=== PATIENT | female | born 1950 | race Two or more races ===

== ENCOUNTER 2017-09-04 21:40 | Inpatient (IN) | payer OTHER ==
[~2017-09-04] VITALS: Ht 160 cm; Wt 76.6 kg
[~2017-09-04 21:40] MED LIST: ALB5IS NEB; Ipratropium Bromide NEB; LEV500PM PO; MET25T PO; NITR0.4S29 SL
[2017-09-04 22:43] LABS: Eosinophils # (auto) 0.1 uL; Eosinophils % (auto) 1.2 % (0.0-7.0); Lymphocytes % (auto) 7.1 % (10.0-50.0); Mean Corpuscular Hemoglobin 32.6 pg (28.0-32.0); Monocytes # (auto) 0.3 uL
[2017-09-04 22:44] LABS: Basophils # (auto) 0 uL; Basophils % (auto) 0.1 % (0.0-2.0); Hematocrit 25.3 % (36.0-46.0); Hemoglobin 8.2 g/dL (12.2-16.2); Lymphocytes # (auto) 0.5 uL; Mean Corpuscular Hgb Conc. 32.4 g/dL (32.0-36.0); Mean Corpuscular Volume 100.5 fL (80.0-100.0); Monocytes % (auto) 4.8 % (0.0-12.0); Neutrophils # (auto) 5.6 uL; Neutrophils % (auto) 86.8 % (37.0-80.0); Nucleated Red Blood Cells % 0.3 %; Platelet Count (auto) 144 10^3/uL (140-450); Red Blood Cells 2.52 10^6/uL (4.0-5.20); White Blood Cell 6.4 10^3/uL (4.4-10.8)
[2017-09-04 22:51] LABS: INR 0.97 (0.9-1.15); Partial Thromboplastin Time 19.7 sec (22.64-33.71); Prothrombin Time 10.6 sec (9.37-12.3)
[2017-09-04 22:53] LABS: Chloride 102 mmol/L (98-107); Potassium 3.9 mmol/L (3.5-5.1); Sodium 139 mmol/L (136-145)
[2017-09-04 22:55] LABS: Red Cell Distribution Width 20.3 % (11.8-14.3)
[2017-09-04 22:56] LABS: Alanine Aminotransferase 180 U/L (13-56); Albumin 3.4 g/dL (3.4-5.0); Anion Gap 11 (5-15); Aspartate Aminotransferase 85 U/L (15-37); BUN/Creatinine Ratio 10.5; Blood Alcohol < 3.0 mg/dL (0-5); Blood Urea Nitrogen 51 mg/dL (7-18); Calcium 7.9 mg/dL (8.5-10.1); Carbon Dioxide 26 mmol/L (21-32); GFR African American 12 mL/min; GFR Non-African American 10 mL/min; Glucose 116 mg/dL (74-106); Magnesium 2.2 mg/dL (1.6-2.6)
[2017-09-04 23:09] LABS: Alkaline Phosphatase 164 U/L (45-117); Bilirubin, Total 0.8 mg/dL (0.2-1.0); Total Protein 5.7 g/dL (6.4-8.2)
[2017-09-04] MEDS ORDERED: FAMO-12 PO (23:39)
[2017-09-04] MEDS ORDERED: ZOLP5TAB5 PO (23:39)
[2017-09-04] MEDS ORDERED: ALPR0.254 PO (23:39)
[2017-09-04] MEDS ORDERED: CALC667C PO (23:39)
[2017-09-04] MEDS ORDERED: CALC0.25 PO (23:39)
[2017-09-04] MEDS ORDERED: METO-159 PO (23:39)
[2017-09-04] MEDS ORDERED: METO5TAB2 PO (23:39)
[2017-09-05] MEDS ORDERED: LEVOFLOXACIN 500MG 100 ML IV ONE (05:00)
[2017-09-05] MEDS ORDERED: METOPROLOL SUCCINATE XL 50 MG TAB PO ONE (06:45)
[2017-09-05 06:57] LABS: Urine Bacteria NONE SEEN /hpf (None Seen); Urine Blood 2+ /uL (Negative); Urine Specific Gravity 1.009 (1.001-1.035); Urine WBC 11 /hpf (0 - 5)
[2017-09-05 07:22] LABS: Alcohol, Urine < 3.0 mg/dL (0-5); Amphetamine Screen, Urine NEGATIVE (NEGATIVE); Barbiturate Scree,Urine NEGATIVE (NEGATIVE); Benzodiazephine Screen, Urine NEGATIVE (NEGATIVE); Cannabinoid Screen, Urine NEGATIVE (NEGATIVE); Cocaine Screen, Urine NEGATIVE (NEGATIVE); Opiate Scree,Urine NEGATIVE (NEGATIVE); Phencyclidine Screen, Urine NEGATIVE (NEGATIVE)
[2017-09-05] MEDS ORDERED: NITROGLYCERIN 0.4 MG SL TAB SL PRN ×2 (09:00)
[2017-09-05] MEDS ORDERED: ALPRAZolam 0.25 MG TAB PO PRN (09:00)
[2017-09-05] MEDS ORDERED: MORPHINE SULFATE 4 MG/ML SYR/VIAL IV PRN (09:00)
[2017-09-05] MEDS ORDERED: ZOLPIDEM TARTRATE 5 MG TAB PO PRN (09:00)
[2017-09-05] MEDS: METOPROLOL TARTRATE 25 MG TAB PO SCH ×2 (10:22→23:59)
[2017-09-05 10:35] LABS: Basophils # (auto) 0 uL; Basophils % (auto) 0.5 % (0.0-2.0); Eosinophils # (auto) 0.1 uL; Hematocrit 27.3 % (36.0-46.0); Hemoglobin 8.5 g/dL (12.2-16.2); Lymphocytes # (auto) 0.4 uL; Lymphocytes % (auto) 7.1 % (10.0-50.0); Mean Corpuscular Hemoglobin 32.4 pg (28.0-32.0); Mean Corpuscular Hgb Conc. 31.3 g/dL (32.0-36.0); Mean Corpuscular Volume 103.6 fL (80.0-100.0); Monocytes # (auto) 0.3 uL; Monocytes % (auto) 5.5 % (0.0-12.0); Neutrophils # (auto) 4.4 uL; Neutrophils % (auto) 85.9 % (37.0-80.0); Nucleated Red Blood Cells % 0.1 %; Platelet Count (auto) 177 10^3/uL (140-450); Red Blood Cells 2.63 10^6/uL (4.0-5.20); White Blood Cell 5.1 10^3/uL (4.4-10.8)
[2017-09-05 10:36] LABS: Red Cell Distribution Width 21.1 % (11.8-14.3)
[2017-09-05 10:54] LABS: BUN/Creatinine Ratio 10.1; Bilirubin, Total 1.3 mg/dL (0.2-1.0); Calcium 7.9 mg/dL (8.5-10.1); Potassium 3.9 mmol/L (3.5-5.1); Total Protein 5.3 g/dL (6.4-8.2)
[2017-09-05] MEDS ORDERED: SODIUM CHL 0.9% 1000 ML BAG XX ONE (12:45)
[2017-09-05] MEDS ORDERED: EPOETIN ALFA 10,000 UNIT/1 ML VIAL IV ONE (12:45)
[2017-09-05 13:00] VITALS: BP 168/87
[2017-09-05] MEDS ORDERED: SULF400T11 PO (13:11)
[2017-09-05 17:00] VITALS: BP 158/81
[2017-09-05 21:50] VITALS: BP 151/83
[2017-09-05 22:00] VITALS: BP 163/81
[2017-09-06 05:00] VITALS: BP 146/66
[2017-09-06 06:12] LABS: White Blood Cell 3.5 10^3/uL (4.4-10.8)
[2017-09-06 06:15] LABS: Mean Corpuscular Hemoglobin 33.1 pg (28.0-32.0); Mean Corpuscular Hgb Conc. 33.3 g/dL (32.0-36.0); Mean Corpuscular Volume 99.3 fL (80.0-100.0); Platelet Count (auto) 175 10^3/uL (140-450); Red Blood Cells 2.41 10^6/uL (4.0-5.20)
[2017-09-06 06:26] LABS: Red Cell Distribution Width 20.5 % (11.8-14.3)
[2017-09-06 06:55] LABS: Band Neutrophils % (manual) 0; Blast Cells 0; Eosinophils % (manual) 0 (0-7); Myelocytes % 0; Promyelocytes % 0; Reactive Lymphocytes 0
[2017-09-06 06:57] LABS: BUN/Creatinine Ratio 7.2; Calcium 7.6 mg/dL (8.5-10.1); Potassium 3.6 mmol/L (3.5-5.1)
[2017-09-06 06:58] LABS: Basophils % (manual) 1 (0.0-2.0); Lymphocytes % (manual) 8 (10.0-50.0); Metamyelocytes % 1; Monocytes % (manual) 10 (0-12)
[2017-09-06 09:00] VITALS: BP 152/81
[2017-09-06] MEDS: METOPROLOL TARTRATE 25 MG TAB PO SCH (09:37)
[2017-09-06 13:03] VITALS: BP 151/89
[2017-09-06 17:00] VITALS: BP 159/85
== END 2017-09-06 17:40 | disposition home or self-care (01) | DRG 291 ==
LOC: EDUNIT# 21:40 → EDBD 21:40 → ER 21:45 → TELE 21:46 → TELE-WESTW 09-05 11:32
PROVIDERS: ADMIT Internal Medicine; ATTEND Internal Medicine
DX: I13.2 Hypertensive heart and chronic kidney disease with heart failure and with stage 5 chronic kidney disease, or end stage renal disease (principal); I26.99 Other pulmonary embolism without acute cor pulmonale; J13 Pneumonia due to Streptococcus pneumoniae; I24.8 Other forms of acute ischemic heart disease; N18.6 End stage renal disease; I48.2 Chronic atrial fibrillation; I50.33 Acute on chronic diastolic (congestive) heart failure; F41.9 Anxiety disorder, unspecified; D63.8 Anemia in other chronic diseases classified elsewhere; I50.84 End stage heart failure; E66.9 Obesity, unspecified; I25.10 Atherosclerotic heart disease of native coronary artery without angina pectoris; Z79.899 Other long term (current) drug therapy; Z82.49 Family history of ischemic heart disease and other diseases of the circulatory system; Z83.3 Family history of diabetes mellitus; Z92.21 Personal history of antineoplastic chemotherapy; Z99.2 Dependence on renal dialysis; I25.2 Old myocardial infarction
CPT/HCPCS: 36415; 70450; 71045; 78582; 80048; 80053; 80307; 80320; 81001; 83605; 83735; 83880; 84484; 85007; 85025; 85027; 85379; 85610; 85730; 87040; 87081; 90935; 93005; 93306; 96365; J0885; J1642; J1956

== ENCOUNTER 2019-01-14 17:43 | Emergency (ER) | payer OTHER ==
[~2019-01-14] VITALS: Ht 162.6 cm; Wt 81.6 kg
[~2019-01-14 17:43] MED LIST changes: -ALB5IS NEB; +ALPR0.254 PO; +CALC0.25 PO; +CALC667C PO; +FAMO-12 PO; -LEV500PM PO; -MET25T PO; +METO-159 PO; +METO5TAB2 PO; -NITR0.4S29 SL; +SULF400T11 PO; +ZOLP5TAB5 PO
[2019-01-14] MEDS ORDERED: CATHFLO ACTIVASE (ALTEPLASE) 2 MG VIAL IV ONE ×2 (23:17→23:30)
[2019-01-14 23:43] LABS: Basophils # (auto) 0.1 uL; Basophils % (auto) 0.9 % (0.0-2.0); Eosinophils # (auto) 0.3 uL; Hematocrit 40.6 % (36.0-46.0); Hemoglobin 13.3 g/dL (12.2-16.2); Lymphocytes # (auto) 1.1 uL; Lymphocytes % (auto) 13.3 % (10.0-50.0); Mean Corpuscular Hemoglobin 31.7 pg (28.0-32.0); Mean Corpuscular Hgb Conc. 32.7 g/dL (32.0-36.0); Monocytes # (auto) 0.7 uL; Monocytes % (auto) 8.7 % (0.0-12.0); Neutrophils # (auto) 6.3 uL; Neutrophils % (auto) 73.1 % (37.0-80.0); Nucleated Red Blood Cells % 0.1 %; Platelet Count (auto) 219 10^3/uL (140-450); Red Blood Cells 4.19 10^6/uL (4.0-5.20); Red Cell Distribution Width 14.7 % (11.8-14.3); White Blood Cell 8.6 10^3/uL (4.4-10.8)
[2019-01-14 23:52] LABS: Albumin 3.6 g/dL (3.4-5.0); BUN/Creatinine Ratio 18.4; Calcium 8.6 mg/dL (8.5-10.1); Potassium 5.1 mmol/L (3.5-5.1)
[2019-01-14 23:56] LABS: Bilirubin, Total 0.4 mg/dL (0.2-1.0); Total Protein 7.5 g/dL (6.4-8.2)
[2019-01-15 01:38] VITALS: BP 151/73
[2019-01-15] MEDS ORDERED: HEPARIN IN NS 1000U/500ML (2UNIT/ML) 500 ML BAG/KIT IV ONE (01:45)
[2019-01-15] MEDS ORDERED: HEPARIN SODIUM (PORCINE) 5000 UNITS/ML 1ML VIAL IV ONE ×2 (02:00)
== END 2019-01-15 01:38 | disposition home or self-care (01) ==
LOC: ER 17:56
DX: T82.49XA Other complication of vascular dialysis catheter, initial encounter (principal); I12.0 Hypertensive chronic kidney disease with stage 5 chronic kidney disease or end stage renal disease; N18.6 End stage renal disease; Z99.2 Dependence on renal dialysis; Z79.899 Other long term (current) drug therapy; Y84.1 Kidney dialysis as the cause of abnormal reaction of the patient, or of later complication, without mention of misadventure at the time of the procedure; Y92.89 Other specified places as the place of occurrence of the external cause
CPT/HCPCS: 36415; 71045; 80053; 85025; 96374; 96375; 99284; J1642; J2997; J7030; 96376

== ENCOUNTER 2020-04-23 08:53 | Inpatient (IN) | payer OTHER ==
[~2020-04-23] VITALS: Ht 160 cm; Wt 81.6 kg
[2020-04-23 10:26] LABS: Basophils # (auto) 0 10 ^3/uL (0-0.2); Basophils % (auto) 0.6 % (0.0-2.0); Eosinophils # (auto) 0 10 ^3/uL (0-0.8); Hematocrit 25.8 % (36.0-46.0); Hemoglobin 8.7 g/dL (12.2-16.2); Lymphocytes # (auto) 0.2 10 ^3/uL (0.4-5.4); Lymphocytes % (auto) 2.6 % (10.0-50.0); Mean Corpuscular Hemoglobin 31.4 pg (28.0-32.0); Mean Corpuscular Hgb Conc. 33.8 g/dL (32.0-36.0); Mean Corpuscular Volume 93.1 fL (80.0-100.0); Monocytes # (auto) 0.2 10 ^3/uL (0-1.3); Monocytes % (auto) 2.9 % (0.0-12.0); Neutrophils # (auto) 5.6 10 ^3/uL (1.6-8.6); Neutrophils % (auto) 93.9 % (37.0-80.0); Nucleated Red Blood Cells % 0.1 %; Platelet Count (auto) 270 10^3/uL (140-450); Red Blood Cells 2.78 10^6/uL (4.0-5.20); Red Cell Distribution Width 15.1 % (11.8-14.3)
[2020-04-23 10:41] LABS: Albumin 2.2 g/dL (3.4-5.0); Calcium 8.8 mg/dL (8.5-10.1); Potassium 4.8 mmol/L (3.5-5.1)
[2020-04-23 10:43] LABS: BUN/Creatinine Ratio 10.6; Bilirubin, Total 0.5 mg/dL (0.2-1.0); Total Protein 7.1 g/dL (6.4-8.2)
[2020-04-23] MEDS ORDERED: AZITHROMYCIN 500MG/ 250ML 250 ML IV ONE (13:45)
[2020-04-23 14:14] LABS: Lactic Acid w/Reflex 4.9 mmol/L (0.4-2.0)
[2020-04-23 14:39] LABS: INR 1.03 (0.9-1.15); Partial Thromboplastin Time 28.8 sec (23.0-31.2)
[2020-04-23] MEDS ORDERED: AMIODARONE HCL 150 MG in D5W 5% 100 ML IV ONE (15:30)
[2020-04-23] MEDS ORDERED: AMIODARONE HCL (50 MG/ ML) 3 ML VIAL IV ONE (15:32)
[2020-04-23] MEDS ORDERED: diphenhdrAMINE HCL 50 MG/1 ML VL ONE (15:39)
[2020-04-23] MEDS ORDERED: diphenhdrAMINE HCL 50 MG/1 ML VL IV ONE (15:45)
[2020-04-23] MEDS ORDERED: NITROGLYCERIN 0.4 MG SL TAB SL PRN (15:45)
[2020-04-23] MEDS ORDERED: MORPHINE SULF INJ 2 MG/ML SYRINGE 1ML IV PRN (15:45)
[2020-04-23] MEDS ORDERED: AMIODARONE 450mg/250ml AE 250 ML IV SCH ×3 (15:45→22:00)
[2020-04-23] MEDS ORDERED: dilTIAZem 25 MG/5 ML VIAL IV ONE ×2 (15:59→16:15)
[2020-04-23] MEDS ORDERED: SODIUM BICARBONATE 8.4 % INJ 50ML VIAL IV ONE (16:15)
[2020-04-23] MEDS ORDERED: ASPirin 325 MG TAB PO ONE (16:15)
[2020-04-23] MEDS ORDERED: SODIUM CHLORIDE 0.9% 2,000 ML IV ONE (16:45)
[2020-04-23] MEDS ORDERED: METOPROLOL TARTRATE 25 MG TAB ONE (17:25)
[2020-04-23] MEDS ORDERED: METOPROLOL TARTRATE 50 MG TAB PO ONE (17:30)
[2020-04-23] MEDS ORDERED: DIGOXIN (250MCG/ML) 2 ML AMPULE IV ONE (18:00)
[2020-04-23] MEDS ORDERED: LORazepam 2MG/ML-1ML VIAL ONE (18:42)
[2020-04-23] MEDS ORDERED: LORazepam 2MG/ML-1ML VIAL IV ONE (18:45)
[2020-04-23 18:58] VITALS: BP 137/92
[2020-04-23 22:24] LABS: Lactic Acid w/Reflex 4.5 mmol/L (0.4-2.0)
[2020-04-23 23:00] VITALS: BP 120/75
[2020-04-24 01:57] VITALS: BP 133/73
[2020-04-24] MEDS ORDERED: LORazepam 2MG/ML-1ML VIAL IV ONE (03:00)
[2020-04-24] MEDS: PERITONEAL DIALYSIS 1.5% SOLN 2,000 ML IP SCH ×2 (06:00→07:25)
[2020-04-24] MEDS ORDERED: DIGOXIN (250MCG/ML) 2 ML AMPULE IV ONE ×2 (06:00)
[2020-04-24 06:06] LABS: Basophils # (auto) 0 10 ^3/uL (0-0.2); Basophils % (auto) 0.4 % (0.0-2.0); Eosinophils # (auto) 0 10 ^3/uL (0-0.8); Hemoglobin 9.8 g/dL (12.2-16.2); Lymphocytes # (auto) 0.6 10 ^3/uL (0.4-5.4); Lymphocytes % (auto) 5.1 % (10.0-50.0); Mean Corpuscular Hemoglobin 31.4 pg (28.0-32.0); Mean Corpuscular Hgb Conc. 31.7 g/dL (32.0-36.0); Mean Corpuscular Volume 99.2 fL (80.0-100.0); Monocytes # (auto) 0.2 10 ^3/uL (0-1.3); Monocytes % (auto) 1.8 % (0.0-12.0); Neutrophils # (auto) 10.5 10 ^3/uL (1.6-8.6); Neutrophils % (auto) 92.7 % (37.0-80.0); Platelet Count (auto) 263 10^3/uL (140-450); Red Blood Cells 3.13 10^6/uL (4.0-5.20); Red Cell Distribution Width 16.1 % (11.8-14.3); White Blood Cell 11.3 10^3/uL (4.4-10.8)
[2020-04-24 06:37] LABS: BUN/Creatinine Ratio 11.4; Calcium 9.1 mg/dL (8.5-10.1); Potassium 5.2 mmol/L (3.5-5.1)
[2020-04-24 06:40] VITALS: BP 106/55
[2020-04-24 08:01] VITALS: BP 117/84
[2020-04-24] MEDS ORDERED: HEPARIN DRIP/D5W 100UNITS/ML 250 ML IV SCH (08:15)
[2020-04-24 09:34] LABS: INR 1.1 (0.9-1.15); Partial Thromboplastin Time 27.6 sec (23.0-31.2)
[2020-04-24] MEDS ORDERED: ETOMIDATE (2MG/ML) 20ML VIAL IV ONE ×2 (09:41→14:00)
[2020-04-24] MEDS ORDERED: SUCCINYLCHOLINE CHLORIDE 20 MG/ML 10ML VIAL IV ONE ×2 (09:41→14:00)
[2020-04-24] MEDS ORDERED: DexAMETHasone INJECTION 10 MG in D5W 5% 50 ML IV SCH (10:00)
[2020-04-24] MEDS ORDERED: AZITHROMYCIN 500MG/ 250ML 250 ML IV SCH (10:00)
[2020-04-24] MEDS ORDERED: cefTRIAXone 1GM/50ML D5W 50 ML IV SCH (10:00)
[2020-04-24] MEDS ORDERED: CHOLECALCIFEROL (VITD3) 2,000 UNIT CAP PO SCH (10:00)
[2020-04-24] MEDS ORDERED: ZINC SULFATE 220mg CAP or TAB PO SCH (10:00)
[2020-04-24] MEDS ORDERED: ASCORBIC ACID 500 MG TAB PO SCH (10:00)
[2020-04-24] MEDS ORDERED: MIDAZOLAM DRIP 50 mg/50mL 50 ML IV ONE (10:09)
[2020-04-24] MEDS ORDERED: CALCIUM CHLOR(10%) 100MG/ML 10ML SYRINGE IV ONE (15:03)
[2020-04-24] MEDS ORDERED: SEVELAMER 800 MG TAB PO SCH (18:00)
== END 2020-04-24 10:37 | DRG 871 ==
LOC: ER 08:53 → EDBD 08:53 → TELE 15:49
PROVIDERS: ADMIT Internal Medicine; ATTEND Internal Medicine
PROC: 5A09357 Assistance with Respiratory Ventilation, Less than 24 Consecutive Hours, Continuous Positive Airway Pressure (ICD-10-PCS; principal; 2020-04-23)
PROC: 3E1M39Z Irrigation of Peritoneal Cavity using Dialysate, Percutaneous Approach (ICD-10-PCS; 2020-04-23)
PROC: 5A12012 Performance of Cardiac Output, Single, Manual (ICD-10-PCS; 2020-04-24)
DX: A41.89 Other specified sepsis (principal); I21.4 Non-ST elevation (NSTEMI) myocardial infarction; J12.89 Other viral pneumonia; J96.01 Acute respiratory failure with hypoxia; N18.6 End stage renal disease; U07.1 COVID-19; I12.0 Hypertensive chronic kidney disease with stage 5 chronic kidney disease or end stage renal disease; D63.1 Anemia in chronic kidney disease; E66.9 Obesity, unspecified; E78.5 Hyperlipidemia, unspecified; F41.9 Anxiety disorder, unspecified; G47.00 Insomnia, unspecified; I46.9 Cardiac arrest, cause unspecified; I49.8 Other specified cardiac arrhythmias; Z79.899 Other long term (current) drug therapy; Z82.49 Family history of ischemic heart disease and other diseases of the circulatory system; Z83.3 Family history of diabetes mellitus; Z92.21 Personal history of antineoplastic chemotherapy; Z99.2 Dependence on renal dialysis; I48.91 Unspecified atrial fibrillation
CPT/HCPCS: 36415; 36600; 71045; 80048; 80053; 82306; 82728; 82805; 83036; 83605; 83615; 83735; 83970; 84100; 84484; 85025; 85379; 85610; 85730; 87040; 87426; 94660; 96365; 96367; 96368; 96375; 99291; G0378; J0330; J1100; J2250; J7060